=== PATIENT | female | born 1985 | race Caucasian/White ===

== ENCOUNTER → 2016-10-04 | Outpatient (CLI) | payer OTHER ==
[~2016-10-04] VITALS: Ht 170.2 cm; Wt 83.9 kg
[~2016-10-04] MED LIST: KEFLEX CAP 500500 MG PO; PERCOCET 5-3251 EACH PO; TYLENOL 325MG325 MG PO; ZOFRAN4 MG PO
== END ==
LOC: GENOP 12:36
DX: O42.913 Preterm premature rupture of membranes, unspecified as to length of time between rupture and onset of labor, third trimester (principal); O99.89 Other specified diseases and conditions complicating pregnancy, childbirth and the puerperium; R10.9 Unspecified abdominal pain; Z3A.32 32 weeks gestation of pregnancy
CPT/HCPCS: 83518; G0463

== ENCOUNTER 2016-11-01 16:29 | Outpatient (CLI) | payer OTHER | END 2016-11-01 18:51 | disposition home or self-care (01) | LOC: GENOP 16:29 | DX: O99.89 Other specified diseases and conditions complicating pregnancy, childbirth and the puerperium (principal); R10.9 Unspecified abdominal pain; Z3A.36 36 weeks gestation of pregnancy | CPT/HCPCS: 81001; G0463 ==

== ENCOUNTER 2016-11-18 16:25 | Inpatient (IN) | payer OTHER ==
[~2016-11-18] VITALS: Ht 170.2 cm; Wt 80.3 kg
[2016-11-18 17:30] LABS: HEMOGLOBIN 10.6 gm/dl (12.3-15.3); RED BLOOD COUNT 3.93 M/UL (4.00-5.10); WHITE BLOOD COUNT 11.6 K/UL (4.5-11.0)
[2016-11-20 03:17] LABS: HEMOGLOBIN 10.2 gm/dl (12.3-15.3)
== END 2016-11-20 15:31 | disposition home or self-care (01) | DRG 775 ==
LOC: GENOP 16:25 → OB 16:36
PROVIDERS: Obstetrics & Gynecology; ADMIT Obstetrics & Gynecology
PROC: 10907ZC Drainage of Amniotic Fluid, Therapeutic from Products of Conception, Via Natural or Artificial Opening (ICD-10-PCS; principal; 2016-11-19)
PROC: 10E0XZZ Delivery of Products of Conception, External Approach (ICD-10-PCS; 2016-11-19)
PROC: 0U7C7ZZ Dilation of Cervix, Via Natural or Artificial Opening (ICD-10-PCS; 2016-11-19)
PROC: 3E0234Z Introduction of Serum, Toxoid and Vaccine into Muscle, Percutaneous Approach (ICD-10-PCS; 2016-11-19)
DX: O69.81X0 Labor and delivery complicated by cord around neck, without compression, not applicable or unspecified (principal); O70.0 First degree perineal laceration during delivery; Z3A.39 39 weeks gestation of pregnancy; Z37.0 Single live birth; Z23 Encounter for immunization; O32.8XX0 Maternal care for other malpresentation of fetus, not applicable or unspecified
CPT/HCPCS: 36415; 51702; 80307; 81001; 82810; 85014; 85018; 85025; 85461; 86850; 86900; 86901; 90715; G0463; J2300; J2405; J2590; J2790; J2795; J3010; J7120

== ENCOUNTER 2021-06-26 14:14 | Emergency (ER) | payer OTHER ==
[~2021-06-26 14:14] MED LIST changes: +COLACE 100MG C100 MG PO; +IBUPROFEN600 MG PO; +LORTAB 5-325 M1 EACH PO; +MACROBID 100 M100 MG PO; +PHENERGAN 12.12.5 M1 PO; +PRENATAL VITAM1 EAC8 PO; +ZOFRAN ODT 4 MG4 MG PO
== END 2021-06-26 15:23 | disposition home or self-care (01) ==
LOC: ER1 14:14
DX: S93.601A Unspecified sprain of right foot, initial encounter (principal); Z88.1 Allergy status to other antibiotic agents; W19.XXXA Unspecified fall, initial encounter; Y92.009 Unspecified place in unspecified non-institutional (private) residence as the place of occurrence of the external cause
CPT/HCPCS: 73630; 99283

== ENCOUNTER 2021-12-22 11:25 | Emergency (ER) | payer OTHER ==
[2021-12-22 12:31] LABS: HEMOGLOBIN 11.3 gm/dl (12.3-15.3); RED BLOOD COUNT 4.47 M/UL (4.00-5.10); WHITE BLOOD COUNT 12.8 K/UL (4.5-11.0)
[2021-12-22 13:06] LABS: BUN/CREATININE RATIO 7 (0-10)
[2021-12-22] MEDS ORDERED: ZOFRAN 4 MG TAB4 MG PO (14:38)
[2021-12-22] MEDS ORDERED: BACTRIM DS TAB1 EACH PO (14:38)
== END 2021-12-22 14:54 | disposition home or self-care (01) ==
LOC: ER1 11:25
PROVIDERS: Physician Assistant
DX: N39.0 Urinary tract infection, site not specified (principal); D72.829 Elevated white blood cell count, unspecified; Z88.1 Allergy status to other antibiotic agents; Z20.822 Contact with and (suspected) exposure to COVID-19
CPT/HCPCS: 0240U; 71045; 80053; 81001; 83605; 83690; 84703; 85025; 85379; 87077; 87086; 87186; 93005; 99284; Q9967